=== PATIENT | female | born 1990 | race Caucasian/White ===

== ENCOUNTER 2016-07-27 06:23 | Emergency (ER) | payer OTHER ==
--- NOTE | 2016-07-27 06:42 | ED NURSING NOTES ---
Clinical Report - Nurses [facility] [address] [place] [address] 07/27/2016 6:24 Patient: ARJUN STEVENS TRIAGE Triage time 06:Jul 27 2016. Acuity: LEVEL 4. Chief Complaint: LEFT LOWER TOOTHACHE and SWELLING OF JAW / FACE. 06:30 07/27/16. SEPSIS SCREEN: Sepsis Screen. Negative (no infection suspected/documented). --06:30 Diana Archibald R.N. 06:27 07/27/16. BP: 129/84. HR: 100. RR: 16. O2 saturation: 100%. Temp: 98.2 F. Pain level now: 510. --06:30 Diana Archibald R.N. Weight: 52.1 kg stated. Height/Length: 66 inches Per Patient. BMI: 18.5. --06:27 Diana Archibald R.N. Medications Methadone. --06:28 Diana Archibald R.N. Depo-Provera Intramuscular. --06:29 Diana Archibald R.N. Allergies Penicillins. --06:28 Diana Archibald R.N. Medication/allergy information source: the patient. --06:30 Diana Archibald R.N. History Arrived by private vehicle. Historian: patient. Accompanied by friend. Onset. (4 days). She has had swelling of the jaw. 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 (2200 [address]). PAST MEDICAL HX: Uses depo injections. Denies current . SOCIAL HX: Heavy tobacco smoker (cigarette)- 1 pack per day. No alcohol use or drug use. No infectious disease exposure. ABUSE ASSESSMENT: No report of abuse. NUTRITIONAL RISK ASSESSMENT: The nutritional risk assessment revealed no deficiencies. FUNCTIONAL ASSESSMENT: Functional assessment: no impairments noted. LEARNING NEEDS ASSESSMENT: The learning needs assessment revealed no barriers. SKIN INTEGRITY ASSESSMENT: Skin integrity risk assessment completed. No skin integrity risk identified. --06:30 Diana Archibald R.N. ( Pt reports she has had facial swelling and tooth pain for 4 days. She states she had to have dental appt rescheduled until monday at dentist office request.). --06:32 Diana Archibald R.N. PROBLEMS: Otitis Externa. Cellulitis. Chlamydia. Dental Abscess. Dental Caries. Lifestyle / Substance Problems. Substance Abuse. --06:29 Diana Archibald R.N. ADDITIONAL SURGERIES: ear tubes . Pet bilat when 3 years old. Tympanostomy Tubes. --06:29 Diana Archibald R.N. Interventions ID band on patient. --06:30 Diana Archibald R.N. PHYSICAL ASSESSMENT 06:33 07/27/16. Ambulatory to room. GENERAL / NEURO / PSYCH: Alert. Oriented X 4. Appears in no acute distress. HEENT: Facial swelling present involving the area around the left eye. Pupils equal, round and reactive to light. Normal ear exam. Pharynx within normal limits. Voice within normal limits. Mouth within normal limits upon inspection. Dental tenderness. Dental decay. No sinus tenderness present. Mucous membranes are pink. RESPIRATORY: Respirations not labored. SKIN: Skin is warm and dry. Normal skin turgor. --06:33 Diana Archibald R.N. NURSING PROGRESS NOTES 06:33 07/27/16. The initial plan of care for this patient includes an assessment with efforts to address the presence of pain. This plan of care was discussed with the patient. Patient gowned. Reassurance given. Patient identifiers checked. Call light placed in reach. Side rails up x 1. Bed placed in lowest position. Brakes of bed on. Patient ready for evaluation. --06:33 Diana Archibald R.N. DISPOSITION / DISCHARGE 06:47 07/27/16. Departure time: 06:47 Jul 27 2016. Condition at departure: unchanged and stable. The goals identified in the patient's plan of care were met. No learning barriers present. Reviewed warnings (do not take ibuprofen when taking toradol). Reviewed medication(s) side effects, precautions, dosing and course information. Prescription(s) given to the patient. Reviewed referral to a dentist for followup. Summary of care provided to patient via paper. Patient verbalized understanding. Written instructions provided in Greek. The patient was discharged home and accompanied by acid regenerator. She left the Emergency Department ambulatory and via private vehicle. Crew Member driving. --06:47 Diana Archibald R.N. 06:27 07/27/16. BP: 129/84. HR: 100. RR: 16. O2 saturation: 100%. Temp: 98.2 F. Pain level now: 10/05. --06:49 Diana Archibald R.N. Locked/Released at 07/27/2016 6:49 by Diana Archibald R.N.
--- NOTE | 2016-07-27 06:42 | ED CLINICAL REPORT ---
Clinical Report - Physicians/Mid Levels [facility] [address] [place] [address] 07/27/2016 6:24 Patient: ARJUN STEVENS Time Seen: 06:30. Arrived- By private vehicle. Historian- patient. HISTORY OF PRESENT ILLNESS Chief Complaint: DENTAL PAIN. This started yesterday and is still present. It was abrupt in onset and has been constant. Pain described as moderate. The patient has had toothache involving multiple teeth (left lower). She has had swelling of the jaw and jaw pain. REVIEW OF SYSTEMS No chills, fever, sweats, calf pain or chest pain. No cough, difficulty breathing, pedal edema, palpitations or abdominal pain. No constipation, diarrhea, nausea, vomiting or urinary problems. All systems otherwise negative, except as recorded above. PAST HISTORY Problems: Pharyngitis. Hives. Bronchitis. Allergic Reaction. Eye discomfort . Otitis Externa. Cellulitis. Chlamydia. Lumbar Strain. Dental Abscess. Dental Pain. Dental Caries. Anxiety Reaction. Narcotic Withdrawal. Lifestyle / Substance Problems. Substance Abuse. UTI - Urinary Tract Infection. Contusion. Additional Surgeries: ear tubes . Pet bilat when 3 years old. Tympanostomy Tubes. Medications: Depo-Provera Intramuscular. Methadone. Allergies: Penicillins. SOCIAL HISTORY Current every day heavy tobacco smoker (cigarette)- 1 pack per day. No alcohol use or drug use. FAMILY HISTORY No significant family medical history. ADDITIONAL NOTES The nursing notes have been reviewed. PHYSICAL EXAM Vital Signs: 07/27/2016 06:27 BP: 129/84. HR: 100. RR: 16. O2 saturation: 100%. Temp: 98.2 F. Pain level now: 5/10. Have been reviewed. Appearance: Alert. Eyes: Pupils equal, round and reactive to light. ENT: Moderate, extensive dental decay with gingival tenderness, induration and swelling (lower left premolars). Ears normal. Nose normal. Pharynx normal. Lips normal. No trismus present. Uvula midline. Neck: Normal inspection. Trachea midline. No adenopathy. Thyroid normal. Neck supple. CVS: Normal heart rate and rhythm. Heart sounds normal. Respiratory: No respiratory distress. Breath sounds normal. Abdomen: Soft and nontender. No organomegaly. Skin: Normal skin color. No rash. Normal skin turgor. Extremities: Extremities exhibit normal ROM. PROGRESS AND PROCEDURES Course of Care: Patient is stable. Patient/family counseled. Old medical records reviewed. Disposition: Discharged. Condition: stable. CLINICAL IMPRESSION Dental pain. Dental abscess. INSTRUCTIONS Drink plenty of fluids. Warnings: Further evaluation is necessary. GENERAL WARNINGS: Return or contact your physician immediately if your condition worsens or changes unexpectedly, if not improving as expected, or if other problems arise. Prescription Medications: Toradol 10 mg tablets: Take 1 tablet orally every 6 hours as needed. Dispense fifteen (15). No refills. Substitution is permissible. Clindamycin 300 mg: take 1 capsule orally every 6 hours for 10 days. No refill. Follow-up: Follow up with a dentist. Call for the next available appointment. Understanding of the discharge instructions verbalized by patient. (Electronically signed by Oscar Maria MD 07/28/2016 1:49)
--- NOTE | 2016-07-27 06:42 | ED NURSING NOTES ---
Clinical Report - Nurses [facility] [address] [place] [address] 07/27/2016 6:24 Patient: ARJUN STEVENS TRIAGE Triage time 06:Jul 27 2016. Acuity: LEVEL 4. Chief Complaint: LEFT LOWER TOOTHACHE and SWELLING OF JAW / FACE. 06:30 07/27/16. SEPSIS SCREEN: Sepsis Screen. Negative (no infection suspected/documented). --06:30 Diana Archibald R.N. 06:27 07/27/16. BP: 129/84. HR: 100. RR: 16. O2 saturation: 100%. Temp: 98.2 F. Pain level now: 510. --06:30 Diana Archibald R.N. Weight: 52.1 kg stated. Height/Length: 66 inches Per Patient. BMI: 18.5. --06:27 Diana Archibald R.N. Medications Methadone. --06:28 Diana Archibald R.N. Depo-Provera Intramuscular. --06:29 Diana Archibald R.N. Allergies Penicillins. --06:28 Diana Archibald R.N. Medication/allergy information source: the patient. --06:30 Diana Archibald R.N. History Arrived by private vehicle. Historian: patient. Accompanied by friend. Onset. (4 days). She has had swelling of the jaw. 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 (2200 [address]). PAST MEDICAL HX: Uses depo injections. Denies current . SOCIAL HX: Heavy tobacco smoker (cigarette)- 1 pack per day. No alcohol use or drug use. No infectious disease exposure. ABUSE ASSESSMENT: No report of abuse. NUTRITIONAL RISK ASSESSMENT: The nutritional risk assessment revealed no deficiencies. FUNCTIONAL ASSESSMENT: Functional assessment: no impairments noted. LEARNING NEEDS ASSESSMENT: The learning needs assessment revealed no barriers. SKIN INTEGRITY ASSESSMENT: Skin integrity risk assessment completed. No skin integrity risk identified. --06:30 Diana Archibald R.N. ( Pt reports she has had facial swelling and tooth pain for 4 days. She states she had to have dental appt rescheduled until monday at dentist office request.). --06:32 Diana Archibald R.N. PROBLEMS: Otitis Externa. Cellulitis. Chlamydia. Dental Abscess. Dental Caries. Lifestyle / Substance Problems. Substance Abuse. --06:29 Diana Archibald R.N. ADDITIONAL SURGERIES: ear tubes . Pet bilat when 3 years old. Tympanostomy Tubes. --06:29 Diana Archibald R.N. Interventions ID band on patient. --06:30 Diana Archibald R.N. PHYSICAL ASSESSMENT 06:33 07/27/16. Ambulatory to room. GENERAL / NEURO / PSYCH: Alert. Oriented X 4. Appears in no acute distress. HEENT: Facial swelling present involving the area around the left eye. Pupils equal, round and reactive to light. Normal ear exam. Pharynx within normal limits. Voice within normal limits. Mouth within normal limits upon inspection. Dental tenderness. Dental decay. No sinus tenderness present. Mucous membranes are pink. RESPIRATORY: Respirations not labored. SKIN: Skin is warm and dry. Normal skin turgor. --06:33 Diana Archibald R.N. NURSING PROGRESS NOTES 06:33 07/27/16. The initial plan of care for this patient includes an assessment with efforts to address the presence of pain. This plan of care was discussed with the patient. Patient gowned. Reassurance given. Patient identifiers checked. Call light placed in reach. Side rails up x 1. Bed placed in lowest position. Brakes of bed on. Patient ready for evaluation. --06:33 Diana Archibald R.N. DISPOSITION / DISCHARGE 06:47 07/27/16. Departure time: 06:47 Jul 27 2016. Condition at departure: unchanged and stable. The goals identified in the patient's plan of care were met. No learning barriers present. Reviewed warnings (do not take ibuprofen when taking toradol). Reviewed medication(s) side effects, precautions, dosing and course information. Prescription(s) given to the patient. Reviewed referral to a dentist for followup. Summary of care provided to patient via paper. Patient verbalized understanding. Written instructions provided in Kiswahili. The patient was discharged home and accompanied by special agent group insurance. She left the Emergency Department ambulatory and via private vehicle. Inspector Aligning driving. --06:47 Diana Archibald R.N. 06:27 07/27/16. BP: 129/84. HR: 100. RR: 16. O2 saturation: 100%. Temp: 98.2 F. Pain level now: 10/05. --06:49 Diana Archibald R.N. Locked/Released at 07/27/2016 6:49 by Diana Archibald R.N.
--- NOTE | 2016-07-27 06:42 | ED CLINICAL REPORT ---
Clinical Report - Physicians/Mid Levels [facility] [address] [place] [address] 07/27/2016 6:24 Patient: ARJUN STEVENS Time Seen: 06:30. Arrived- By private vehicle. Historian- patient. HISTORY OF PRESENT ILLNESS Chief Complaint: DENTAL PAIN. This started yesterday and is still present. It was abrupt in onset and has been constant. Pain described as moderate. The patient has had toothache involving multiple teeth (left lower). She has had swelling of the jaw and jaw pain. REVIEW OF SYSTEMS No chills, fever, sweats, calf pain or chest pain. No cough, difficulty breathing, pedal edema, palpitations or abdominal pain. No constipation, diarrhea, nausea, vomiting or urinary problems. All systems otherwise negative, except as recorded above. PAST HISTORY Problems: Pharyngitis. Hives. Bronchitis. Allergic Reaction. Eye discomfort . Otitis Externa. Cellulitis. Chlamydia. Lumbar Strain. Dental Abscess. Dental Pain. Dental Caries. Anxiety Reaction. Narcotic Withdrawal. Lifestyle / Substance Problems. Substance Abuse. UTI - Urinary Tract Infection. Contusion. Additional Surgeries: ear tubes . Pet bilat when 3 years old. Tympanostomy Tubes. Medications: Depo-Provera Intramuscular. Methadone. Allergies: Penicillins. SOCIAL HISTORY Current every day heavy tobacco smoker (cigarette)- 1 pack per day. No alcohol use or drug use. FAMILY HISTORY No significant family medical history. ADDITIONAL NOTES The nursing notes have been reviewed. PHYSICAL EXAM Vital Signs: 07/27/2016 06:27 BP: 129/84. HR: 100. RR: 16. O2 saturation: 100%. Temp: 98.2 F. Pain level now: 5/10. Have been reviewed. Appearance: Alert. Eyes: Pupils equal, round and reactive to light. ENT: Moderate, extensive dental decay with gingival tenderness, induration and swelling (lower left premolars). Ears normal. Nose normal. Pharynx normal. Lips normal. No trismus present. Uvula midline. Neck: Normal inspection. Trachea midline. No adenopathy. Thyroid normal. Neck supple. CVS: Normal heart rate and rhythm. Heart sounds normal. Respiratory: No respiratory distress. Breath sounds normal. Abdomen: Soft and nontender. No organomegaly. Skin: Normal skin color. No rash. Normal skin turgor. Extremities: Extremities exhibit normal ROM. PROGRESS AND PROCEDURES Course of Care: Patient is stable. Patient/family counseled. Old medical records reviewed. Disposition: Discharged. Condition: stable. CLINICAL IMPRESSION Dental pain. Dental abscess. INSTRUCTIONS Drink plenty of fluids. Warnings: Further evaluation is necessary. GENERAL WARNINGS: Return or contact your physician immediately if your condition worsens or changes unexpectedly, if not improving as expected, or if other problems arise. Prescription Medications: Toradol 10 mg tablets: Take 1 tablet orally every 6 hours as needed. Dispense fifteen (15). No refills. Substitution is permissible. Clindamycin 300 mg: take 1 capsule orally every 6 hours for 10 days. No refill. Follow-up: Follow up with a dentist. Call for the next available appointment. Understanding of the discharge instructions verbalized by patient. (Electronically signed by Oscar Maria MD 07/28/2016 1:49)
--- NOTE | 2016-07-28 01:50 | ED MED RECONCILIATION SUMMARY ---
Patient: ARJUN STEVENS Medication Reconciliation Report [facility] VisitID: [id number] [address] [place] [address] 26y, F Registration Date/Time: 07/27/2016 Weight: 52.1 kg Height/Length: 66 in. BMI: 18.5 ALLERGIES: Penicillins The patient's Home Medications are listed below: THE FOLLOWING MEDICATIONS NEED TO BE RECONCILED: Depo-Provera Intramuscular Methadone The source(s) of the original Home Medication information: patient The following Medications were given to the patient in the Emergency Department: None. The following Medications were prescribed to the patient: Toradol 10 mg tablets: Take 1 tablet orally every 6 hours as needed. Dispense fifteen (15). No refills. Substitution is permissible. -- Oscar Maria MD Clindamycin 300 mg: take 1 capsule orally every 6 hours for 10 days. No refill. -- Oscar Maria MD
--- NOTE | 2016-07-28 01:50 | ED DISCHARGE INSTRUCTIONS ---
Patient: ARJUN STEVENS General Instructions [facility] VisitID: [id number] [place] [address] 26y, F Registration Date/Time: 07/27/2016 Dental pain. Dental abscess. INSTRUCTIONS Drink plenty of fluids. Warnings: Further evaluation is necessary. GENERAL WARNINGS: Return or contact your physician immediately if your condition worsens or changes unexpectedly, if not improving as expected, or if other problems arise. Prescription Medications: Toradol 10 mg tablets: Take 1 tablet orally every 6 hours as needed. Dispense fifteen (15). No refills. Substitution is permissible. Clindamycin 300 mg: take 1 capsule orally every 6 hours for 10 days. No refill. Follow-up: Follow up with a dentist. Call for the next available appointment. Understanding of the discharge instructions verbalized by patient. ADDITIONAL INFORMATION Dental Pain A crack or cavity in the tooth, which exposes the sensitive inner area of the tooth can cause tooth pain. An infection in the gum or the root of the tooth can cause pain and swelling. The pain is often made worse by drinking hot or cold fluids, or biting on hard foods. Pain may spread from the tooth to the ear or jaw on the same side. Home Care: Avoid hot and cold foods and liquids since your tooth may be sensitive to temperature changes. If your tooth is chipped or cracked, or if there is a large open cavity, apply OIL OF CLOVES (available mnap-aei-ewasiju in drug stores) directly to the tooth to reduce pain. Some pharmacies carry an bqcp-dnu-algypku "toothache kit." This contains a paste, which can be applied over the exposed tooth to decrease sensitivity. A cold pack on your jaw over the sore area may help reduce pain. You may use acetaminophen (Tylenol) or ibuprofen (Motrin, Advil) to control pain, unless another medicine was prescribed. [ NOTE: If you have chronic liver or kidney disease or ever had a stomach ulcer or GI bleeding, talk with your doctor before using these medicines.] If you have signs of an infection, an antibiotic will be given. Take it as directed. Follow-Up as directed with a dentist. Your pain may go away with the treatment given. However, only a dentist can fully evaluate and treat the cause and prevent the pain from coming back again. TOOTHACHE IS A SIGN OF DISEASE IN YOUR TOOTH AND SHOULD BE EXAMINED AND TREATED BY A DENTIST. Get Prompt Medical Attention if any of the following occur: Your face becomes swollen or red Pain worsens or spreads to the neck Fever over 100.4 F (38.0 C) Unusual drowsiness; headache or stiff neck; weakness or fainting Pus drains from the tooth Difficulty swallowing or breathing Dental Abscess A dental abscess is an infection of the tooth socket. It often starts with a crack or cavity in the tooth. A pocket of pus forms between the tooth and the bone. The infection causes pain and swelling of the gum, cheek or jaw. The pain is often made worse by drinking hot or cold fluids, or biting on hard foods. Pain may be felt in the facial sinus or in the ear. A severe infection can interfere with swallowing and breathing. In the emergency department or clinic, you will be started on an antibiotic. However, final treatment requires drainage of the pus. This can be done by removing the tooth or performing a root canal. A root canal is done by an oral surgeon and involves drilling an opening in the tooth to drain the pus. After the infection has healed, a crown is placed over the tooth. Home care The following guidelines will help you care for your abscess at home: Avoid hot and cold foods and liquids since your tooth may be sensitive to temperature changes. If your tooth is chipped or cracked, or if there is a large open cavity, applyoil of cloves(available qxzl-nhz-vqlbliz in drug stores) directly to the tooth to reduce pain. Some pharmacies carry an yfxk-jrg-mvbvcph "toothache kit". This contains oil of cloves and a paste, which can be applied over the exposed tooth to decrease sensitivity. Apply an ice pack (ice cubes in a plastic bag, wrapped in a towel) over the injured area for 20 minutes every 12 hours the first day for pain relief. Continue this 34 times a day until the pain and swelling goes away. You may use acetaminophen or ibuprofen to control pain, unless another medicine was prescribed. If you have chronic liver or kidney disease or ever had a stomach ulcer or GI bleeding, talk with your doctor before using these medicines. An antibiotic will be prescribed. Take it as directed until completed, even if you are feeling better sooner. Follow-up care Follow up as directed with a dentist or oral surgeon. Even though your pain may improve with the treatment given today, only a dentist or oral surgeon can provide full treatment for this problem. When to seek medical care Get prompt medical attention or contact your doctor if any of the following occur: Your face or eyelid becomes swollen or red Pain worsens or spreads to the neck Fever over 100.4F (38.0C) Unusual drowsiness; headache or stiff neck; weakness, or fainting Pus drains from the gum or tooth Difficulty talking, swallowing or breathing Unable to open your mouth wide Ketorolac Tromethamine Oral tablet What is this medicine? KETOROLAC (kim toe ROLE ak) is a non-steroidal anti-inflammatory drug (NSAID). It is used for a short while to treat moderate to severe pain, including pain after surgery. It should not be used for more than 5 days. How should I use this medicine? Take this medicine by mouth with a full glass of water. Follow the directions on the prescription label. Take your medicine at regular intervals. Do not take your medicine more often than directed. Do not take more than the recommended dose. A special MedGuide will be given to you by the pharmacist with each prescription and refill. Be sure to read this information carefully each time. Talk to your cone cleaner regarding the use of this medicine in children. While this drug may be prescribed for children as young as 16 years of age for selected conditions, precautions do apply. Patients over 65 years old may have a stronger reaction and need a smaller dose. What side effects may I notice from receiving this medicine? Side effects that you should report to your doctor or health manager critical care unit as soon as possible: allergic reactions like skin rash, itching or hives, swelling of the face, lips, or tongue black or tarry stools breathing problems changes in vision chest pain high blood pressure nausea or vomiting redness, blistering, peeling or loosening of the skin, including inside the mouth severe abdominal pain slurred speech or weakness on one side of the body unexplained weight gain or swelling unusual bleeding or bruising unusually weak or tired yellowing of eyes or skin Side effects that usually do not require medical attention (report to your doctor or health manager critical care unit if they continue or are bothersome): diarrhea dizziness headache heartburn What may interact with this medicine? Do not take this medicine with any of the following medications: aspirin and aspirin-like medicines cidofovir methotrexate NSAIDs, medicines for pain and inflammation, like ibuprofen or naproxen pemetrexed probenecid This medicine may also interact with the following medications: alcohol alendronate alprazolam carbamazepine cyclosporine diuretics flavocoxid fluoxetine ginkgo lithium medicines for high blood pressure like enalapril medicines that affect platelets like pentoxifylline medicines that treat or prevent blood clots like heparin, warfarin muscle relaxants phenytoin steroid medicines like prednisone or cortisone thiothixene What if I miss a dose? If you miss a dose, take it as soon as you can. If it is almost time for your next dose, take only that dose. Do not take double or extra doses. Where should I keep my medicine? Keep out of the reach of children. Store at room temperature between 20 and 25 degrees C (68 and 77 degrees F). Throw away any unused medicine after the expiration date. What should I tell my health care provider before I take this medicine? They need to know if you have any of these conditions: asthma bleeding problems like hemophilia cigarette smoker drink more than 3 alcohol containing drinks a day heart disease or circulation problems such as heart failure or leg edema (fluid retention) high blood pressure kidney disease liver disease stomach bleeding or ulcers an unusual or allergic reaction to ketorolac, aspirin, other NSAIDs, other medicines, foods, dyes, or preservatives or trying to get breast-feeding What should I watch for while using this medicine? Tell your doctor or health manager critical care unit if your pain does not get better. Talk to your doctor before taking another medicine for pain. Do not treat yourself. This medicine does not prevent heart attack or stroke. In fact, this medicine may increase the chance of a heart attack or stroke. The chance may increase with longer use of this medicine and in people who have heart disease. If you take aspirin to prevent heart attack or stroke, talk with your doctor or health manager critical care unit. Do not take medicines such as ibuprofen and naproxen with this medicine. Side effects such as stomach upset, nausea, or ulcers may be more likely to occur. Many medicines available without a prescription should not be taken with this medicine. This medicine can cause ulcers and bleeding in the stomach and intestines at any time during treatment. Do not smoke cigarettes or drink alcohol. These increase irritation to your stomach and can make it more susceptible to damage from this medicine. Ulcers and bleeding can happen without warning symptoms and can cause . You may get drowsy or dizzy. Do not drive, use machinery, or do anything that needs mental alertness until you know how this medicine affects you. Do not stand or sit up quickly, especially if you are an older patient. This reduces the risk of dizzy or fainting spells. This medicine can cause you to bleed more easily. Try to avoid damage to your teeth and gums when you brush or floss your teeth. Clindamycin Hydrochloride Oral capsule What is this medicine? CLINDAMYCIN (MARGARITO Cobb) is a lincosamide antibiotic. It is used to treat certain kinds of bacterial infections. It will not work for colds, flu, or other viral infections. How should I use this medicine? Take this medicine by mouth with a full glass of water. Follow the directions on the prescription label. You can take this medicine with food or on an empty stomach. If the medicine upsets your stomach, take it with food. Take your medicine at regular intervals. Do not take your medicine more often than directed. Take all of your medicine as directed even if you think your are better. Do not skip doses or stop your medicine early. Talk to your cone cleaner regarding the use of this medicine in children. Special care may be needed. What side effects may I notice from receiving this medicine? Side effects that you should report to your doctor or health manager critical care unit as soon as possible: allergic reactions like skin rash, itching or hives, swelling of the face, lips, or tongue dark urine pain on swallowing redness, blistering, peeling or loosening of the skin, including inside the mouth unusual bleeding or bruising unusually weak or tired yellowing of eyes or skin Side effects that usually do not require medical attention (report to your doctor or health manager critical care unit if they continue or are bothersome): diarrhea itching in the rectal or genital area joint pain nausea, vomiting stomach pain What may interact with this medicine? chloramphenicol erythromycin kaolin products What if I miss a dose? If you miss a dose, take it as soon as you can. If it is almost time for your next dose, take only that dose. Do not take double or extra doses. Where should I keep my medicine? Keep out of the reach of children. Store at room temperature between 20 and 25 degrees C (68 and 77 degrees F). Throw away any unused medicine after the expiration date. What should I tell my health care provider before I take this medicine? They need to know if you have any of these conditions: kidney disease liver disease stomach problems like colitis an unusual or allergic reaction to clindamycin, lincomycin, or other medicines, foods, dyes like tartrazine or preservatives or trying to get breast-feeding What should I watch for while using this medicine? Tell your doctor or healthcare professional if your symptoms do not start to get better or if they get worse. Do not treat diarrhea with over the counter products. Contact your doctor if you have diarrhea that lasts more than 2 days or if it is severe and watery. You have been given the following additional information: Dental Pain Tooth Abscess Ketorolac Tromethamine Oral tablet Clindamycin Hydrochloride Oral capsule (Electronically signed by Oscar Maria MD 07/28/2016 1:49)
--- NOTE | 2016-07-28 01:50 | ED MED RECONCILIATION SUMMARY ---
Patient: ARJUN STEVENS Medication Reconciliation Report [facility] VisitID: [id number] [place] [address] 26y, F Registration Date/Time: 07/27/2016 Weight: 52.1 kg Height/Length: 66 in. BMI: 18.5 ALLERGIES: Penicillins The patient's Home Medications are listed below: THE FOLLOWING MEDICATIONS NEED TO BE RECONCILED: Depo-Provera Intramuscular Methadone The source(s) of the original Home Medication information: patient The following Medications were given to the patient in the Emergency Department: None. The following Medications were prescribed to the patient: Toradol 10 mg tablets: Take 1 tablet orally every 6 hours as needed. Dispense fifteen (15). No refills. Substitution is permissible. -- Oscar Maria MD Clindamycin 300 mg: take 1 capsule orally every 6 hours for 10 days. No refill. -- Oscar Maria MD
--- NOTE | 2016-07-28 01:50 | ED DISCHARGE INSTRUCTIONS ---
Patient: ARJUN STEVENS General Instructions [facility] VisitID: [id number] [place] [address] 26y, F Registration Date/Time: 07/27/2016 Dental pain. Dental abscess. INSTRUCTIONS Drink plenty of fluids. Warnings: Further evaluation is necessary. GENERAL WARNINGS: Return or contact your physician immediately if your condition worsens or changes unexpectedly, if not improving as expected, or if other problems arise. Prescription Medications: Toradol 10 mg tablets: Take 1 tablet orally every 6 hours as needed. Dispense fifteen (15). No refills. Substitution is permissible. Clindamycin 300 mg: take 1 capsule orally every 6 hours for 10 days. No refill. Follow-up: Follow up with a dentist. Call for the next available appointment. Understanding of the discharge instructions verbalized by patient. ADDITIONAL INFORMATION Dental Pain A crack or cavity in the tooth, which exposes the sensitive inner area of the tooth can cause tooth pain. An infection in the gum or the root of the tooth can cause pain and swelling. The pain is often made worse by drinking hot or cold fluids, or biting on hard foods. Pain may spread from the tooth to the ear or jaw on the same side. Home Care: Avoid hot and cold foods and liquids since your tooth may be sensitive to temperature changes. If your tooth is chipped or cracked, or if there is a large open cavity, apply OIL OF CLOVES (available yvuo-lhy-tktelpq in drug stores) directly to the tooth to reduce pain. Some pharmacies carry an eery-nua-nzqdnzf "toothache kit." This contains a paste, which can be applied over the exposed tooth to decrease sensitivity. A cold pack on your jaw over the sore area may help reduce pain. You may use acetaminophen (Tylenol) or ibuprofen (Motrin, Advil) to control pain, unless another medicine was prescribed. [ NOTE: If you have chronic liver or kidney disease or ever had a stomach ulcer or GI bleeding, talk with your doctor before using these medicines.] If you have signs of an infection, an antibiotic will be given. Take it as directed. Follow-Up as directed with a dentist. Your pain may go away with the treatment given. However, only a dentist can fully evaluate and treat the cause and prevent the pain from coming back again. TOOTHACHE IS A SIGN OF DISEASE IN YOUR TOOTH AND SHOULD BE EXAMINED AND TREATED BY A DENTIST. Get Prompt Medical Attention if any of the following occur: Your face becomes swollen or red Pain worsens or spreads to the neck Fever over 100.4 F (38.0 C) Unusual drowsiness; headache or stiff neck; weakness or fainting Pus drains from the tooth Difficulty swallowing or breathing Dental Abscess A dental abscess is an infection of the tooth socket. It often starts with a crack or cavity in the tooth. A pocket of pus forms between the tooth and the bone. The infection causes pain and swelling of the gum, cheek or jaw. The pain is often made worse by drinking hot or cold fluids, or biting on hard foods. Pain may be felt in the facial sinus or in the ear. A severe infection can interfere with swallowing and breathing. In the emergency department or clinic, you will be started on an antibiotic. However, final treatment requires drainage of the pus. This can be done by removing the tooth or performing a root canal. A root canal is done by an oral surgeon and involves drilling an opening in the tooth to drain the pus. After the infection has healed, a crown is placed over the tooth. Home care The following guidelines will help you care for your abscess at home: Avoid hot and cold foods and liquids since your tooth may be sensitive to temperature changes. If your tooth is chipped or cracked, or if there is a large open cavity, applyoil of cloves(available wmfx-vuv-xgeszwx in drug stores) directly to the tooth to reduce pain. Some pharmacies carry an ocrc-moz-uvsobpt "toothache kit". This contains oil of cloves and a paste, which can be applied over the exposed tooth to decrease sensitivity. Apply an ice pack (ice cubes in a plastic bag, wrapped in a towel) over the injured area for 20 minutes every 12 hours the first day for pain relief. Continue this 34 times a day until the pain and swelling goes away. You may use acetaminophen or ibuprofen to control pain, unless another medicine was prescribed. If you have chronic liver or kidney disease or ever had a stomach ulcer or GI bleeding, talk with your doctor before using these medicines. An antibiotic will be prescribed. Take it as directed until completed, even if you are feeling better sooner. Follow-up care Follow up as directed with a dentist or oral surgeon. Even though your pain may improve with the treatment given today, only a dentist or oral surgeon can provide full treatment for this problem. When to seek medical care Get prompt medical attention or contact your doctor if any of the following occur: Your face or eyelid becomes swollen or red Pain worsens or spreads to the neck Fever over 100.4F (38.0C) Unusual drowsiness; headache or stiff neck; weakness, or fainting Pus drains from the gum or tooth Difficulty talking, swallowing or breathing Unable to open your mouth wide Ketorolac Tromethamine Oral tablet What is this medicine? KETOROLAC (kim toe ROLE ak) is a non-steroidal anti-inflammatory drug (NSAID). It is used for a short while to treat moderate to severe pain, including pain after surgery. It should not be used for more than 5 days. How should I use this medicine? Take this medicine by mouth with a full glass of water. Follow the directions on the prescription label. Take your medicine at regular intervals. Do not take your medicine more often than directed. Do not take more than the recommended dose. A special MedGuide will be given to you by the pharmacist with each prescription and refill. Be sure to read this information carefully each time. Talk to your anode machine operator regarding the use of this medicine in children. While this drug may be prescribed for children as young as 16 years of age for selected conditions, precautions do apply. Patients over 65 years old may have a stronger reaction and need a smaller dose. What side effects may I notice from receiving this medicine? Side effects that you should report to your doctor or health pet caregiver as soon as possible: allergic reactions like skin rash, itching or hives, swelling of the face, lips, or tongue black or tarry stools breathing problems changes in vision chest pain high blood pressure nausea or vomiting redness, blistering, peeling or loosening of the skin, including inside the mouth severe abdominal pain slurred speech or weakness on one side of the body unexplained weight gain or swelling unusual bleeding or bruising unusually weak or tired yellowing of eyes or skin Side effects that usually do not require medical attention (report to your doctor or health pet caregiver if they continue or are bothersome): diarrhea dizziness headache heartburn What may interact with this medicine? Do not take this medicine with any of the following medications: aspirin and aspirin-like medicines cidofovir methotrexate NSAIDs, medicines for pain and inflammation, like ibuprofen or naproxen pemetrexed probenecid This medicine may also interact with the following medications: alcohol alendronate alprazolam carbamazepine cyclosporine diuretics flavocoxid fluoxetine ginkgo lithium medicines for high blood pressure like enalapril medicines that affect platelets like pentoxifylline medicines that treat or prevent blood clots like heparin, warfarin muscle relaxants phenytoin steroid medicines like prednisone or cortisone thiothixene What if I miss a dose? If you miss a dose, take it as soon as you can. If it is almost time for your next dose, take only that dose. Do not take double or extra doses. Where should I keep my medicine? Keep out of the reach of children. Store at room temperature between 20 and 25 degrees C (68 and 77 degrees F). Throw away any unused medicine after the expiration date. What should I tell my health care provider before I take this medicine? They need to know if you have any of these conditions: asthma bleeding problems like hemophilia cigarette smoker drink more than 3 alcohol containing drinks a day heart disease or circulation problems such as heart failure or leg edema (fluid retention) high blood pressure kidney disease liver disease stomach bleeding or ulcers an unusual or allergic reaction to ketorolac, aspirin, other NSAIDs, other medicines, foods, dyes, or preservatives or trying to get breast-feeding What should I watch for while using this medicine? Tell your doctor or health pet caregiver if your pain does not get better. Talk to your doctor before taking another medicine for pain. Do not treat yourself. This medicine does not prevent heart attack or stroke. In fact, this medicine may increase the chance of a heart attack or stroke. The chance may increase with longer use of this medicine and in people who have heart disease. If you take aspirin to prevent heart attack or stroke, talk with your doctor or health pet caregiver. Do not take medicines such as ibuprofen and naproxen with this medicine. Side effects such as stomach upset, nausea, or ulcers may be more likely to occur. Many medicines available without a prescription should not be taken with this medicine. This medicine can cause ulcers and bleeding in the stomach and intestines at any time during treatment. Do not smoke cigarettes or drink alcohol. These increase irritation to your stomach and can make it more susceptible to damage from this medicine. Ulcers and bleeding can happen without warning symptoms and can cause . You may get drowsy or dizzy. Do not drive, use machinery, or do anything that needs mental alertness until you know how this medicine affects you. Do not stand or sit up quickly, especially if you are an older patient. This reduces the risk of dizzy or fainting spells. This medicine can cause you to bleed more easily. Try to avoid damage to your teeth and gums when you brush or floss your teeth. Clindamycin Hydrochloride Oral capsule What is this medicine? CLINDAMYCIN (MARGARITO Cobb) is a lincosamide antibiotic. It is used to treat certain kinds of bacterial infections. It will not work for colds, flu, or other viral infections. How should I use this medicine? Take this medicine by mouth with a full glass of water. Follow the directions on the prescription label. You can take this medicine with food or on an empty stomach. If the medicine upsets your stomach, take it with food. Take your medicine at regular intervals. Do not take your medicine more often than directed. Take all of your medicine as directed even if you think your are better. Do not skip doses or stop your medicine early. Talk to your anode machine operator regarding the use of this medicine in children. Special care may be needed. What side effects may I notice from receiving this medicine? Side effects that you should report to your doctor or health pet caregiver as soon as possible: allergic reactions like skin rash, itching or hives, swelling of the face, lips, or tongue dark urine pain on swallowing redness, blistering, peeling or loosening of the skin, including inside the mouth unusual bleeding or bruising unusually weak or tired yellowing of eyes or skin Side effects that usually do not require medical attention (report to your doctor or health pet caregiver if they continue or are bothersome): diarrhea itching in the rectal or genital area joint pain nausea, vomiting stomach pain What may interact with this medicine? chloramphenicol erythromycin kaolin products What if I miss a dose? If you miss a dose, take it as soon as you can. If it is almost time for your next dose, take only that dose. Do not take double or extra doses. Where should I keep my medicine? Keep out of the reach of children. Store at room temperature between 20 and 25 degrees C (68 and 77 degrees F). Throw away any unused medicine after the expiration date. What should I tell my health care provider before I take this medicine? They need to know if you have any of these conditions: kidney disease liver disease stomach problems like colitis an unusual or allergic reaction to clindamycin, lincomycin, or other medicines, foods, dyes like tartrazine or preservatives or trying to get breast-feeding What should I watch for while using this medicine? Tell your doctor or healthcare professional if your symptoms do not start to get better or if they get worse. Do not treat diarrhea with over the counter products. Contact your doctor if you have diarrhea that lasts more than 2 days or if it is severe and watery. You have been given the following additional information: Dental Pain Tooth Abscess Ketorolac Tromethamine Oral tablet Clindamycin Hydrochloride Oral capsule (Electronically signed by Oscar Maria MD 07/28/2016 1:49)
--- NOTE | 2016-07-28 01:50 | ED MAR SUMMARY ---
..... Medication Administration Record [facility] [address] [place], [place] [id number] Patient: ARJUN STEVENS Visit ID: [id number] 26y, F Weight: 52.1 kg Height/Length: 66 in BMI: 18.5 ALLERGIES: Penicillins
--- NOTE | 2016-07-28 01:50 | ED MAR SUMMARY ---
..... Medication Administration Record [facility] [address] [place], [place] [id number] Patient: ARJUN STEVENS Visit ID: [id number] 26y, F Weight: 52.1 kg Height/Length: 66 in BMI: 18.5 ALLERGIES: Penicillins
== END 2016-07-27 06:50 | disposition home or self-care (01) ==
LOC: ED SRH 06:23
DX: K04.7 Periapical abscess without sinus (principal); K08.89 Other specified disorders of teeth and supporting structures; F17.210 Nicotine dependence, cigarettes, uncomplicated; Z88.0 Allergy status to penicillin